=== PATIENT | female | born 1985 | race African-American/Black ===

== ENCOUNTER 2022-02-18 18:53 | Emergency (ER) | payer MEDICAID, SELFPAY ==
--- NOTE | ~2022-02-18 | US_ITS ---
EXAMINATION: US OBSTETRICAL FOLLOW UP CLINICAL INFORMATION: 16 weeks. Abdominal pain. COMPARISON: None TECHNIQUE: Real time transabdominal imaging with color and M-mode Doppler. POSITION: Cephalad PLACENTA: Anterior MEASUREMENTS: biometric measurements are as follows: Biparietal Diameter: 4.04 cm (18 weeks 2 days) Occipital Frontal Diameter: 5.03 cm (18 weeks 1 day) Head Circumference: 14.82 cm (18 weeks 0 days) Abdominal Circumference: 12.47 cm (18 weeks 1 day) Femur Length: To 0.75 cm (18 weeks 3 day) The standard deviation for the above measurements is +/- 1 week 6 days ESTIMATED WEIGHT: The EFW is 224 grams +/- 30 3 g. (0 lbs. 8 oz. +/- 1 ounce) Limited anatomic assessment demonstrates normal kidneys, bladder, stomach, and four-chamber heart view. No appreciable morphologic abnormalities are identified on these images. US/US OB follow up IMPRESSION: 1. Single intrauterine gestation in cephalad position with anterior placenta. Gestational age is 18 weeks 1 day based upon today's measurements with an estimated date of delivery 07/21/2021 based upon today's measurements. 2. EFW: 8 ounces
[2022-02-18 19:09] VITALS: BP 138/80; PULSE 76
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
[2022-02-18 19:33] VITALS: BP 104/60; PULSE 76; RESP 16; TEMP 36.8; O2SAT 100; BMI 17.6
--- NOTE | 2022-02-18 19:53 | PC.NURSE ---
doppler performed, hr was located to the rt abdomen at the rate of 164
[2022-02-18 20:13] LABS: MANUAL DIFF FLAG NO
[2022-02-18 20:15] LABS: Basophils Percent Auto 0.4 % (0-2); Eosinophils Percent Auto 0.4 % (0-4); Hematocrit 33.9 % (37.0-47.0); Hemoglobin 11.6 g/dl (12.0-16.0); Imm Gran Abs Auto 0.07 X10*3/uL (0.00-0.03); Imm Gran Pct Auto 0.8 % (0.0-0.4); Lymphocytes Absolute Auto 2.1 X10*3/uL (1.2-4.9); Lymphocytes Percent Auto 25.3 % (20-40); Mean Corpuscular HGB Conc 34.2 g/dl (31.0-35.0); Mean Corpuscular Hemoglobin 30.9 pg (27.0-33.0); Mean Corpuscular Volume 90.4 fL (80.0-98.0); Mean Platelet Volume 10.9 fL (9.4-12.3); Monocytes Absolute Auto 0.9 X10*3/uL (0.1-1.2); Monocytes Percent Auto 10.6 % (2-11); Neutrophils Absolute Auto 5.2 x10*3/uL (2.0-8.3); Neutrophils Percent Auto 62.5 % (45-73); Platelet Count 216 X10*3/uL (160-400); Red Blood Count 3.75 X10*6/uL (4.20-5.50); Red Cell Distribution Width 12.1 % (11.0-16.0); White Blood Count 8.4 X10*3/uL (4.8-10.8)
[2022-02-18 20:16] LABS: Appearance Urine Clear; Color Urine Yellow; Glucose Urine UA Negative (Negative); Leukocyte Esterase Urine Trace (Negative); Nitrite Urine Negative (Negative); PH 7.5 (5.0-9.0); Specific Gravity - Urine 1.015 (1.005-1.025); UMIC TRIGGER UACC YES; Urine Blood Negative (Negative); Urine Ketones Negative (Negative); Urine Protein Negative (Neg-Trace)
[2022-02-18 20:17] VITALS: BP 94/54; PULSE 77; RESP 20; TEMP 36.6; O2SAT 100
[2022-02-18] MEDS: 0.9 % Sodium Chloride 1,000 ML 999 ML IVCONT (20:19)
--- NOTE | 2022-02-18 20:20 | PC.NURSE ---
Pt had stable V/S upon triage. PT BP is low over 94/61, Pt IV inserted and fluids. Pt speaks little French but RN utilize tablet Switch Identity Governance building contractor to finish assessment. Pt labs were drawn and urine was collected.
[2022-02-18 20:22] LABS: Bacteria Urine Trace (None Seen); Hyaline Casts Urine 0-2 /LPF (0-2); RBC Urine 0-2 /HPF (0-2); WBC Urine 0-5 /HPF (0-5)
[2022-02-18 21:09] VITALS: BP 98/64; PULSE 72; RESP 16; TEMP 36.8; O2SAT 100
[2022-02-18 21:38] LABS: Alanine Aminotransferase 9 U/L (0-31); Albumin Level 3.3 g/dL (3.5-5.0); Alkaline Phosphatase 37 U/L (39-117); Anion Gap 15 (12-20); Aspartate Amino Transferase 18 U/L (5-31); Bilirubin Direct < 0.2 mg/dL (0.0-0.5); Bilirubin Total < 0.2 mg/dL (0.0-1.0); Blood Urea Nitrogen 7 mg/dL (9-16); Calcium 8.3 mg/dL (8.4-10.2); Carbon Dioxide 17 mmol/L (22-29); Chloride 110 mmol/L (96-108); Creatinine Clr Calc Pharmacy 93.9; Estimated Glomerular Filt Rate > 60; Glucose Random 86 mg/dL (60-115); Lipase 73 U/L (8-78); Potassium 4.5 mmol/L (3.3-5.1); Sodium 137 mmol/L (135-145); Total Protein 6.3 g/dL (6.5-8.0)
[2022-02-18 22:15] LABS: HCG Quantitative 73393 mIU/mL
--- NOTE | 2022-02-18 23:30 | PC.NURSE ---
Addendum entered by Becki Enriquez 02/18/22 23:47: Tablet was used for Creole major assembler. Original Note: Pt V/S were stable, Pt had pelvic exam completed and labs were sent. Pt was provided for with brochure for f/u on health insurance, food stamps, and further assistance for immigration status. Pt was educated about to take care her and the importance of OB-HEAD CASHIER care.
[2022-02-19 01:08] LABS: CT PCR NOT DETECTED (Not Detect.); NG PCR NOT DETECTED (Not Detect.)
--- NOTE | 2022-02-19 09:02 | PM.OBCN ---
OB Consult Note - [facility] Data Service Date: 02/18/22 Primary Care Provider: None Physician Narrative Late entry note I was consulted at 22:50 on Jenniefr Hansen who is a 36 year old female at 18 weeks of gestation presenting emergency room draining of lower abdominal pain, intermittent in nature but resolved by the time of arrival to the emergency room, it is not associated vaginal bleeding, vaginal discharge leakage of fluid or cramps .? The patient has not had any care, and arrived in [place] about a month ago from [place].? Workup done emergency room included CBC, chemistry, GC chlamydia and Trichomonas or were negative. UA which showed trace of leukocyte esterase. Ob ultrasound showed an 18 weeks and 2 days of gestation live fetus with no abnormalities OB [facility] Social History Social History Patient Tobacco Use Status: Never used Tobacco Use of substances other than those prescribed or required for medical reasons: No Advance Directives: No Advance Directives Information Provided: No Patient : Yes Meds Allergies Allergy/AdvReac Type Severity Reaction Status Date / Time No Known Allergies Allergy Verified 02/18/22 19:11 OB Flowsheet OB Flowsheet & Tools History 3 Elective abortions Para 2 Spontaneous abortions Hx # Term Pregnancies Ectopic pregnancies Hx # Pregnancies Multiple births OB Physical Exam Physical Exam Additional Comments: Reported by josiah Harrison, nurse practitioner in the emergency room as the following: Abdomen soft benign no tenderness positive bowel sounds Pelvic exam within normal no blood per vagina, closed cervix, no tenderness heart rate in the 156 OB Consult Results Labs CBC & Chem 7: 02/18/22 19:55 02/18/22 21:18 Labs: Short CBC 02/18/22 Range/Units 19:55 WBC 8.4 (4.8-10.8) X10*3/uL Hgb 11.6 L (12.0-16.0) g/dl Hct 33.9 L (37.0-47.0) % Plt Count 216 (160-400) X10*3/uL BMP 02/18/22 21:18 Sodium 137 Potassium 4.5 Chloride 110 H Carbon Dioxide 17 L BUN 7 L Creatinine 0.63 Calcium 8.3 L Liver Function 02/18/22 Range/Units 21:18 Total Bilirubin < 0.2 (0.0-1.0) mg/dL Direct Bilirubin < 0.2 (0.0-0.5) mg/dL AST 18 (5-31) U/L ALT 9 (0-31) U/L Alkaline Phosphatase 37 L (39-117) U/L Albumin 3.3 L (3.5-5.0) g/dL Urine 02/18/22 Range/Units 19:55 Urine Color Yellow Urine Appearance Clear Urine pH 7.5 (5.0-9.0) Ur Specific [place] 1.015 (1.005-1.025) Urine Protein Negative (Neg-Trace) mg/dL Urine Glucose (UA) Negative (Negative) mg/dL OB - CN: A/P Assessment and Plan (1) UTI in : Status: Acute Assessment and Plan: Recommended the following: Macrobid 100 mg p.o. b.i.d. for 5 days, send urine for culture, instructions to be given to patient to come back to emergency room in case of recurrence of the pain, vaginal bleeding, fever above 100.4, flank pain, nausea or vomiting, leakage of fluid and to follow-up in the morning in our office for initial visit appointment, vitamin 1 tablet p.o. q.d. I spent a total of 20 minutes reviewing the chart, communicating to the ER provider and documenting in the medical record
== END 2022-02-18 23:50 | disposition home or self-care (01) ==
PROVIDERS: Nurse Practitioner Family; Emergency Provider Emergency Medicine Emergency Medical Services
DX: O26.892 Other specified pregnancy related conditions, second trimester (principal); R10.30 Lower abdominal pain, unspecified; O23.42 Unspecified infection of urinary tract in pregnancy, second trimester; N39.0 Urinary tract infection, site not specified; O09.522 Supervision of elderly multigravida, second trimester; Z3A.18 18 weeks gestation of pregnancy; Z72.89 Other problems related to lifestyle; Z60.3 Acculturation difficulty
CPT/HCPCS: 36415; 76816; 80048; 80076; 81001; 83690; 84702; 85025; 87491; 87591; 96360; 99284

== ENCOUNTER 2025-04-17 10:43 | Outpatient (REF) | payer MEDICAID, SELFPAY ==
--- NOTE | ~2025-04-17 | XR_ITS ---
EXAMINATION: X-ray bilateral knees CLINICAL INFORMATION: Bilateral knee pain 2 years COMPARISON: None TECHNIQUE: [Left knee 4 views. Right knee 3 views. FINDINGS: Right knee: Anatomic alignment. No significant joint space narrowing. No acute fracture, dislocation or suspicious bony lesion. No significant effusion. No abnormal soft tissue calcification. Left knee: Anatomic alignment. No significant joint space narrowing. No fracture, dislocation or suspicious bony lesion. No significant effusion. No abnormal soft tissue calcification. XR/XR knee LT 4V IMPRESSION: No acute findings Electronically signed by: Tutu Hernandez MD 04/17/2025 01:11 PM [facility]
--- NOTE | ~2025-04-17 | XR_ITS ---
EXAMINATION: XR HIP 2 OR MORE VIEWS LEFT HISTORY: bilateral knee pain x 2y + left hip pain x 4y COMPARISON: There are no prior studies available for comparison. FINDINGS: Two views of the left hip are submitted. Osseous mineralization is normal. There is no fracture or dislocation. The joint space is maintained. The soft tissues are unremarkable. XR/XR hip LT min 2V IMPRESSION: Unremarkable examination of the left hip. Electronically signed by: Nitin Barahona MD 04/17/2025 01:12 PM [facility]
--- NOTE | ~2025-04-17 | XR_ITS ---
EXAMINATION: X-ray bilateral knees CLINICAL INFORMATION: Bilateral knee pain 2 years COMPARISON: None TECHNIQUE: [Left knee 4 views. Right knee 3 views. FINDINGS: Right knee: Anatomic alignment. No significant joint space narrowing. No acute fracture, dislocation or suspicious bony lesion. No significant effusion. No abnormal soft tissue calcification. Left knee: Anatomic alignment. No significant joint space narrowing. No fracture, dislocation or suspicious bony lesion. No significant effusion. No abnormal soft tissue calcification. XR/XR knee RT 3V IMPRESSION: No acute findings Electronically signed by: Tutu Hernandez MD 04/17/2025 01:11 PM [facility]
--- OUTSIDE RECORDS SUMMARY | 2025-04-17 09:15 | XMS_ITS | Encounter Summary ---
Author Organization [employer] Address [address] [place] [address] 7 [place] [address] Care Team Providers Care Incinerator Attendant Name Role Phone Nicole Ramirez MD Primary Care Provider + Reason for Visit * Reason Comments Establish Care Encounter Details Date Type Department Care Team ([facility] st Contact Info) Description 04/17/2025 9:15 AM EST Office Visit [facility] [address], [place] [phone] Nicole Ramirez MD [address] [place], [place] [phone] Housing instability due to housing cost burden (Primary Dx); Nonintractable headache, unspecified chronicity pattern, unspecified headache type; Arthralgia of left knee; Arthralgia of both knees; Chronic left hip pain; Screening examination for STD (sexually transmitted disease) Social History Tobacco Use Types Packs/Day Years Used Date Smoking Tobacco: Never Smokeless Tobacco: Never Tobacco Cessation:Counseling Given: Not Answered Depression Answer Date Recorded Patient Health Questionnaire-9 Score 2 04/17/2025 Patient Health Questionnaire-9 Score 2 04/17/2025 Last PHQ-9: Questionnaire Data Not on file 1 06/17/2024 Housing Stability Answer Date Recorded What is your housing situation today? I have lesa wood 04/17/[address] you li ve. Do you have problems with any of the following? Pests such as bugs, ants, or mice;Mold 04/17/2025 Food Insecurity Answer Date Recorded Within the past 12 months, y ou worried that your food would run out before you got money to buy more: Sometimes True 2024 Within the past 12 months,th e food you bought just didn't last and you didn't have enough money to get more: Never True 04/17/2025 Transportation Answer Date Recorded In the past 12 months, has l ack of transportation kept you from medical appts, meetings, work or from getting things needed for daily living? No 04/17/2025 Utilities Answer Date Recorded In the past 12 months, has t he electric, gas, oil or water company threatened to shut off services in your home? Yes 04/17/2025 Depression Answer Date Recorded Patient Health Questionnaire-2 Score 0 04/17/2025 Internet Access Answer Date Recorded Internet Access Q1 Yes 04/09/2025 Internet Access Q2 Not on file 04/09/2025 Comments No Intention Date Recorded No desire to become (finding) 1 06/17/2024 Sex and Gender Information Value Date Recorded Sex Assigned at Female 01/02/2025 10:37 AM EDT Legal Sex Female 10:34 AM EDT Gender Identity Female 01/02/2025 10:37 AM EDT Sexual Orientation Straight 01/02/2025 10 :37 AM EDT documented as of this encounter Last Filed Vital Signs Vital Sign Reading Time Taken Comments Blood Pressure 128/62 04/17/2025 9:37 AM EST Pulse 84 04/17/2025 9:37 AM EST Temperature 36.2 C (97.2 F) 04/17/2025 9:37 AM EST Respiratory Rate 22 04/17/2025 9:37 AM EST Oxygen Saturation - - Inhaled Oxygen Concentration - - Weight 50.1 kg (110 lb 6.4 oz) 04/17/2025 9:37 A M EST Height - - Body Mass Index - - documented in this encounter Functional Status * Over the past 2 weeks, how often have you been bothered by any of the following problems? Question Answer Date of Assessment Author Patient Health Questionnaire -2 Score 0 04/17/2025 10:32 AM EST Nicolette Vaughan MA * Little interest or pleasure in doing things Answer Date of Assessment Author Not at all 04/17/2025 10:32 AM EST Nicolette Vaughan MA * Feeling down, depressed, or hopeless Answer Date of Assessment Author Not at all 04/17/2025 10:32 AM Nicolette Cornelius MA * Trouble falling or staying asleep, or sleeping too much Answer Date of Assessment Author Several days 04/17/2025 10:32 AM Nicolette Cornelius MA * Feeling tired or having little energy Answer Date of Assessment Author Not at all 04/17/2025 10:32 AM Nicolette Cornelius MA * Poor appetite or overeating Answer Date of Assessment Author Several days 04/17/2025 10:32 AM Nicolette Cornelius MA * Feeling bad about yourself - or that you are a failure or have let yourself or your family down Answer Date of Assessment Author Not at all 04/17/2025 10:32 AM Nicolette Cornelius MA * Trouble concentrating on things, such as reading the newspaper or watching television Answer Date of Assessment Author Not at all 04/17/2025 10:32 AM Nicolette Cornelius MA * Moving or speaking so slowly that other people could have noticed? Or the opposite - being so fidgety or restless that you have been moving around a lot more than usual. Answer Date of Assessment Author Not at all 04/17/2025 10:32 AM Nicolette Cornelius MA * Thoughts that you would be better off or hurting yourself in some way Answer Date of Assessment Author Not at all 04/17/2025 10:32 AM Nicolette Cornelius MA * Patient Health Questionnaire-9 Score Answer Date of Assessment Author 2 04/17/2025 10:32 AM Nicolette Cornelius MA * Over the last 2 weeks, how often have you been bothered by any of the following problems? Question Answer Date of Assessment Author Feeling nervous, anxious, or on edge 0 04/17/2025 10:32 AM Nicolette Cornelius MA Not being able to stop or co ntrol worrying 0 04/17/2025 10:32 AM Nicolette Cornelius MA Worrying too much about diff erent things 0 04/17/2025 10:32 AM Nicolette Cornelius MA Trouble relaxing 0 04/17/2025 10:32 AM Nicolette Cornelius MA Being so restless that it is hard to sit still 0 04/17/2025 10:32 AM Nicolette Cornelius MA Becoming easily annoyed or irritable 0 04/17/2025 10:32 AM CORNELL Vaughan Nicolette ELI Feeling afraid as if somethi ng awful might happen 0 04/17/2025 10:32 AM CORNELL Vaughan NicoletteELI JOSEPHINE-7 Total Score 0 04/17/2025 10:32 AM Nicolette CorneliusELI documented as of this encounter Plan of Treatment Upcoming Encounters Date Type Department Care Team (Late st Contact Info) Description 06/29/2025 9:45 AM EST Office Visit [facility] [address] [place] [address] Nicole Ramirez MD [address] [place], [place] [phone] Scheduled Orders Name Type Priority Associated Diagnoses Orde r Schedule Comprehensive Metabolic Panel Lab Routine Nonintractable headache, unspecified chronicity pattern, unspecified headache type Expected: 04/17/2025 (Approximate), Expires: 04/17/2026 HIV-1/2 Antigen and Antibodies, Fourth Generation, with Reflexes Lab Routine Nonintractable headache, unspecified chronicity pattern, unspecified headache type Screening examination for STD (sexually transmitted disease) Expected: 04/17/2025 (Approximate), Expires: 04/17/2026 Hepatitis Panel, General Lab Routine Screening examination for STD (sexually transmitted disease) Expected: 04/17/2025 (Approximate), Expires: 04/17/2026 Lipid Panel with Reflex to Direct LDL Lab Routine Nonintractable headache, unspecified chronicity pattern, unspecified headache type Expected: 04/17/2025 (Approximate), Expires: 04/17/2026 Syphilis Screen Lab Routine Screening examination for STD (sexually transmitted disease) Expected: 04/17/2025 (Approximate), Expires: 04/17/2026 TSH with Reflex to Free T4 Lab Routine Nonintractable headache, unspecified chronicity pattern, unspecified headache type Expected: 04/17/2025 (Approximate), Expires: 04/17/2026 T-SPOT .TB Lab Routine Nonintractable headache, unspecified chronicity pattern, unspecified headache type Expected: 04/17/2025 (Approximate), Expires: 04/17/2026 documented as of this encounter Procedures Procedure Name Priority Date/Time Associated Diagnosis Comments XR KNEE 3 VIEWS RIGHT Routine 04/17/2025 12:21 PM EST Arthralgia of both knees XR KNEE 4+ VIEWS LEFT Routine 04/17/2025 12:17 PM EST Arthralgia of both knees XR HIP 2 OR 3 VIEWS LEFT Routine 04/17/2025 12:14 PM EST Chronic left hip pain CBC WITH AUTO DIFFERENTIAL Routine 04/17/2025 10:59 AM EST Arthralgia of left knee documented in this encounter Results * XR Knee 3 Views Right (04/17/2025 12:21 PM EST) Anatomical Region Laterality Modality Lower Extremities, Knee Right Radiogra phic Imaging 04/17/2025 12:2 1 PM EST Narrative 04/17/2025 1:14 [place] [address] XRay Report Signed Patient: Jennifer Hansen MR#: [id number] : 1985 Acct:[id number] Age/Sex: 40 / F ADM Date: 04/17/25 Loc: HO.[facility]HCX Attending Dr: Nicole Ramirez MD Ordering Physician: Nicole Ramirez MD Date of Service: 04/17/25 Procedure(s): XR knee RT 3V Accession Number(s): [id number] cc: Nicole Ramirez MD Reason for Exam: bl knee pain x 2y + left hip pain x 4y EXAMINATION: X-ray bilateral knees CLINICAL INFORMATION: Bilateral knee pain 2 years COMPARISON: None TECHNIQUE: [Left knee 4 views. Right knee 3 views. FINDINGS: Right knee: Anatomic alignment. No significant joint space narrowing. No acute fracture, dislocation or suspicious bony lesion. No significant effusion. No abnormal soft tissue calcification. Left knee: Anatomic alignment. No significant joint space narrowing. No fracture, dislocation or suspicious bony lesion. No significant effusion. No abnormal soft tissue calcification. XR/XR knee RT 3V IMPRESSION: No acute findings Electronically signed by: Tutu Hernandez MD 04/17/2025 01:11 PM EST RP Dictated By: Tutu Hernandez MD Signed By: <Electronically signed by Tutu Hernandez MD in OV> 04/17/25 1311 DD/ 1221 TD/TT: 04/17/25 1230 Serology Technician: RAMON Procedure Note Donotuseinterpreter, Image - 04/17/[address] [address] XRay Report Signed Patient: Jennifer HansenMR#: [id number] : 1985Acct:[id number] Age/Sex: 40 / FADM Date: 04/17/25 Loc: HO.HHCX Attending Dr: Nicole Ramirez MD Ordering Physician: Nicole Ramirez MD Date of Service: 04/17/25 Procedure(s): XR knee RT 3V Accession Number(s): [id number] cc: Nicole Ramirez MD Reason for Exam: bl knee pain x 2y + left hip pain x 4y EXAMINATION: X-ray bilateral knees CLINICAL INFORMATION: Bilateral knee pain 2 years COMPARISON: None TECHNIQUE: [Left knee 4 views. Right knee 3 views. FINDINGS: Right knee: Anatomic alignment. No significant joint space narrowing. No acute fracture, dislocation or suspicious bony lesion. No significant effusion. No abnormal soft tissue calcification. Left knee: Anatomic alignment. No significant joint space narrowing. No fracture, dislocation or suspicious bony lesion. No significant effusion. No abnormal soft tissue calcification. XR/XR knee RT 3V IMPRESSION: No acute findings Electronically signed by: Tutu Hernandez MD 04/17/2025 01:11 PM EST RP Dictated By: Tutu Hernandez MD Signed By: <Electronically signed by Tutu Hernandez MD in OV> 04/17/25 1311 DD/ 1221 TD/TT: 04/17/25 1230 Serology Technician: RAMON Nicole Ramirez MD IMG XR PROCEDURES Final Result * XR Knee 4+ Views Left (04/17/2025 12:17 PM EST) Anatomical Region Laterality Modality Lower Extremities, Knee Left Radiogra phic Imaging 04/17/2025 12:1 7 PM EST Narrative 04/17/2025 1:14 PM EST [address] [address] XRay Report Signed Patient: Jennifer Hansen MR#: [id number] : 1985 Acct:[id number] Age/Sex: 40 / F ADM Date: 04/17/25 [facility]: Nicole Ramirez MD Ordering Physician: Nicole Ramirez MD Date of Service: 04/17/25 Procedure(s): XR knee LT 4V Accession Number(s): [id number] cc: Nicole Ramirez MD Reason for Exam: bl knee pain x 2y + left hip pain x 4y EXAMINATION: X-ray bilateral knees CLINICAL INFORMATION: Bilateral knee pain 2 years COMPARISON: None TECHNIQUE: [Left knee 4 views. Right knee 3 views. FINDINGS: Right knee: Anatomic alignment. No significant joint space narrowing. No acute fracture, dislocation or suspicious bony lesion. No significant effusion. No abnormal soft tissue calcification. Left knee: Anatomic alignment. No significant joint space narrowing. No fracture, dislocation or suspicious bony lesion. No significant effusion. No abnormal soft tissue calcification. XR/XR knee LT 4V IMPRESSION: No acute findings Electronically signed by: Tutu Hernandez MD 04/17/2025 01:11 PM EST Dictated By: Tutu Hernandez MD Signed By: <Electronically signed by Tutu Hernandez MD in OV> 04/17/25 1311 DD/ 1217 TD/TT: 04/17/25 1230 Serology Technician: RAMON Procedure Note Donotuseinterpreter, Image - 04/17/[address] XRay Report Signed Patient: Jennifer HansenMR#: [id number] : 1985Acct:[id number] Age/Sex: 40 / FADM Date: 04/17/25 Loc: HO.HHCX Attending Dr: Nicole Ramirez MD Ordering Physician: Nicole Ramirez MD Date of Service: 04/17/25 Procedure(s): XR knee LT 4V Accession Number(s): [id number] cc: Nicole Ramirez MD Reason for Exam: bl knee pain x 2y + left hip pain x 4y EXAMINATION: X-ray bilateral knees CLINICAL INFORMATION: Bilateral knee pain 2 years COMPARISON: None TECHNIQUE: [Left knee 4 views. Right knee 3 views. FINDINGS: Right knee: Anatomic alignment. No significant joint space narrowing. No acute fracture, dislocation or suspicious bony lesion. No significant effusion. No abnormal soft tissue calcification. Left knee: Anatomic alignment. No significant joint space narrowing. No fracture, dislocation or suspicious bony lesion. No significant effusion. No abnormal soft tissue calcification. XR/XR knee LT 4V IMPRESSION: No acute findings Electronically signed by: Tutu Hernanedz MD 04/17/2025 01:11 PM EST Dictated By: Tutu Hernandez MD Signed By: <Electronically signed by Tutu Hernandez MD in OV> 04/17/25 1311 DD/ 1217 TD/TT: 04/17/25 1230 Serology Technician: HB Nicole Ramirez MD IMG XR PROCEDURES Final Result * XR Hip 2 or 3 Views Left (04/17/2025 12:14 PM EST) Anatomical Region Laterality Modality Lower Extremities, Hip Left Radiograp hic Imaging 04/17/2025 12:1 4 PM EST Narrative 04/17/2025 1:15 PM EST [address] [address] XRay Report Signed Patient: Jennifer Hansen MR#: [id number] : 1985 Acct:[id number] Age/Sex: 40 / F ADM Date: 04/17/25 Loc: [facility] Attending Dr: Nicole Ramirez MD Ordering Physician: Nicole Ramirez MD Date of Service: 04/17/25 Procedure(s): XR hip LT min 2V Accession Number(s): [id number] cc: Nicole Ramirez MD Reason for Exam: bl knee pain x 2y + left hip pain x 4y EXAMINATION: XR HIP 2 OR MORE VIEWS LEFT HISTORY: bilateral knee pain x 2y + left hip pain x 4y COMPARISON: There are no prior studies available for comparison. FINDINGS: Two views of the left hip are submitted. Osseous mineralization is normal. There is no fracture or dislocation. The joint space is maintained. The soft tissues are unremarkable. XR/XR hip LT min 2V IMPRESSION: Unremarkable examination of the left hip. Electronically signed by: Nitin Barahona MD 04/17/2025 01:12 PM [facility] Dictated By: Nitin Barahona MD Signed By: <Electronically signed by Nitin Barahona MD in OV> 04/17/25 1312 DD/ 1214 TD/TT: 04/17/25 1230 Serology Technician: Procedure Note Donotuseinterpreter, Image - 04/17/2025 [place] [address] XRay Report Signed Patient: Jennifer Hansen#: [id number] : 1985Acct:[id number] Age/Sex: 40 / FADM Date: 04/17/25 Loc: HO.HHCX Attending Dr: Nicole Ramirez MD Ordering Physician: Nicole Ramirez MD Date of Service: 04/17/25 Procedure(s): XR hip LT min 2V Accession Number(s): [id number] cc: Nicole Ramirez MD Reason for Exam: bl knee pain x 2y + left hip pain x 4y EXAMINATION: XR HIP 2 OR MORE VIEWS LEFT HISTORY: bilateral knee pain x 2y + left hip pain x 4y COMPARISON: There are no prior studies available for comparison. FINDINGS: Two views of the left hip are submitted. Osseous mineralization is normal. There is no fracture or dislocation. The joint space is maintained. The soft tissues are unremarkable. XR/XR hip LT min 2V IMPRESSION: Unremarkable examination of the left hip. Electronically signed by: Nitin Barahona MD 04/17/2025 01:12 PM EST RP Dictated By: Nitin Barahona MD Signed By: <Electronically signed by Nitin Barahona MD in OV> 04/17/25 1312 DD/ 1214 TD/TT: 04/17/25 1230 Serology Technician: Nicole Ramirez MD IMG XR PROCEDURES Final Result * CBC auto differential (04/17/2025 10:59 AM EST) White Blood Count 5.0 4.8 - 10.8 X10*3/uL [facility] Red Blood Count 4.29 4.20 - 5.50 X10*6/uL [facility] Hemoglobin 12.5 12.0 - 16.0 g/dl [facility] Hematocrit 39.0 37.0 - 47.0 % [facility] Mean Corpuscular Volume 90.9 80.0 - 98.0 fL [facility] Mean Corpuscular Hemoglobin 29.1 27.0 - 33.0 pg [facility] Mean Corpuscular HGB Conc 32.1 31.0 - 35.0 g/dl [facility] Red Cell Distribution Width 11.3 11.0 - 16.0 % [facility] Platelet Count 185 160 - 400 X10*3/uL [facility] Mean Platelet Volume 12.1 9.4 - 12.3 fL [facility] Neutrophils Percent Auto 54.4 45 - 73 % [facility] Imm Gran Pct Auto 0.2 0.0 - 0.4 % [facility] Lymphocytes Percent Auto 33.6 20 - 40 % [facility] Monocytes Percent Auto 10.6 2 - 11 % [facility] Eosinophils Percent Auto 0.4 0 - 4 % [facility] Basophils Percent Auto 0.8 0 - 2 % [facility] NRBC Pct Auto 0.0 0.0 - 0.2 /100WBC [facility] Neutrophils Absolute Auto 2.7 2.0 - 8.3 x10*3/uL [facility] Imm Gran Abs Auto 0.01 0.00 - 0.03 X10*3/uL [facility] Lymphocytes Absolute Auto 1.7 1.2 - 4.9 X10*3/uL [facility] Monocytes Absolute Auto 0.5 0.1 - 1.2 X10*3/uL [facility] Eosinophils Absolute Auto 0.0 0.0 - 0.4 X10*3/uL [facility] Basophils Absolute Auto 0.0 0.0 - 0.2 X10*3/uL [facility] NRBC Abs Auto 0.000 0.0 - 0.012 X10*3/uL [facility] Blood Venous blood specimen / Unknown 04/17/2025 10:59 AM EST 04/17/2025 1:11 PM EST us Nicole Ramirez MD LAB BLOOD ORDERABLES Fin al Result Performing Organization Address City/State/[facility] Co de Phone Number [facility] [address] [place] [phone] documented in this encounter Visit Diagnoses Diagnosis Housing instability due to housing cost burden- Primary Nonintractable headache, unspecified chronicity pattern, unspecified headache type Arthralgia of left knee Arthralgia of both knees Chronic left hip pain Screening examination for STD (sexually transmitted disease) documented in this encounter Additional Health Concerns Assessment Noted Time PHQ-9 Depression Total Score: 2 04/17/20 10:32 AM EST documented as of this encounter Care Teams Incinerator Attendant Relationship Specialty Start Date End Date Nicole Ramirez MD [address] [place] [phone] PCP - General Internal Medicine 04/17/25 documented as of this encounter
[2025-04-17 13:19] LABS: MANUAL DIFF FLAG NO
[2025-04-17 13:42] LABS: Hematocrit 39.0 % (37.0-47.0); Hemoglobin 12.5 g/dl (12.0-16.0); Imm Gran Abs Auto 0.01 X10*3/uL (0.00-0.03); Imm Gran Pct Auto 0.2 % (0.0-0.4); Lymphocytes Absolute Auto 1.7 X10*3/uL (1.2-4.9); Mean Corpuscular HGB Conc 32.1 g/dl (31.0-35.0); Mean Corpuscular Hemoglobin 29.1 pg (27.0-33.0); Mean Corpuscular Volume 90.9 fL (80.0-98.0); NRBC Abs Auto 0.000 X10*3/uL (0.0-0.012); NRBC Pct Auto 0.0 /100WBC (0.0-0.2); Platelet Count 185 X10*3/uL (160-400); Red Blood Count 4.29 X10*6/uL (4.20-5.50); White Blood Count 5.0 X10*3/uL (4.8-10.8)
--- OUTSIDE RECORDS SUMMARY | 2025-04-17 13:49 | XMS_ITS | Encounter Summary ---
Author Organization [employer] Address [address] [place] [address] Care Team Providers Care Housing Director Name Role Phone Nicole Ramirez MD Primary Care Provider + Encounter Details Date Type Department Care Team (Latest Contact Info) Description 04/17/2025 Travel Social History Tobacco Use Types Packs/Day Years Used Date Smoking Tobacco: Never Smokeless Tobacco: Never Depression Answer Date Recorded Patient Health Questionnaire-9 [...] Q2 Not on file 04/09/2025 Comments No Sex and Gender Information Value Date Recorded Sex Assigned at Female 01/02/2025 10:37 AM EDT Legal Sex Female 10:34 AM EDT Gender Identity Female 01/02/2025 10:37 AM EDT Sexual Orientation Straight 01/02/2025 10 :37 AM EDT documented as of this encounter Functional Status * Over the past 2 weeks, how often have you been bothered by any of the following problems? Question Answer Date of Assessment Author Patient Health Questionnaire -2 Score 0 04/17/2025 10:32 AM Nicolette Cornelius MA * Little interest or pleasure in doing things Answer Date of Assessment Author Not at all 04/17/2025 10:32 AM Nicolette Cornelius MA * Feeling down, depressed, or hopeless Answer Date of Assessment Author Not at all 04/17/2025 10:32 AM Nicolette Cornelius MA * Trouble falling or staying asleep, or sleeping too much Answer Date of Assessment Author Several days 04/17/2025 10:32 AM Nicolette Cornelius MA * Feeling tired or having little energy Answer Date of Assessment Author Not at all 04/17/2025 10:32 AM Nicolette Corneluis MA * Poor appetite or overeating Answer [...] annoyed or irritable 0 04/17/2025 10:32 AM Nicolette Cornelius MA Feeling afraid as if somethi ng awful might happen 0 04/17/2025 10:32 AM Nicolette Cornelius MA JOSEPHINE-7 Total Score 0 04/17/2025 10:32 AM Nicolette Cornelius MA documented as of this encounter Plan of Treatment Upcoming Encounters Date Type Department Care Team (Late st Contact Info) Description 06/29/2025 9:45 AM EST Office Visit [facility] [address] [place] [address] Nicole Ramirez MD [address] [place] [address] documented as of this encounter Visit Diagnoses Not on filedocumented in this encounter Additional Health Concerns Assessment Noted Time PHQ-9 Depression Total Score: 2 04/17/20 10:32 AM EST documented as of this encounter Care Teams Housing Director Relationship Specialty Start Date End Date Nicole Ramirez MD [address] [place] [address] PCP - General Internal Medicine 04/17/25 documented as of this encounter
--- OUTSIDE RECORDS SUMMARY | 2025-04-17 13:49 | XMS_ITS | Clinical Summary ---
Author Organization [employer] Address [address] [facility] [address] [place] [address] Care Team Providers Care Buttermaker Name Role Phone Nicole Ramirez MD Primary Care Provider + Allergies No known active allergies Medications aspirin-acetami nophen-caffeine (Excedrin Migraine) 250-250-65 MG tablet Take 1 tablet by mouth every 6 (six) hours if needed for headaches for up to 10 days. 30 tablet 5 04/27/20 25 Active meloxicam (Mobic) 15 MG tablet Take 1 tablet (15 mg) by mouth Once per day. 30 tablet 5 04/17/20 26 Active Active Problems Problem Noted Date Diagnosed Date Nonintractable headache 04/17/2025 Housing instability due to housing cost burden 1 06/17/2024 Arthralgia of both knees 04/17/2025 Chronic left hip pain 04/17/2025 Encounters Date Type Department Care Team Description 04/17/2025 9:15 AM EST Office Visit [facility] [address] [place] [phone] Nicole Ramirez MD Housing instability due to housing cost burden (Primary Dx); Nonintractable headache, unspecified chronicity pattern, unspecified headache type; Arthralgia of left knee; Arthralgia of both knees; Chronic left hip pain; Screening examination for STD (sexually transmitted disease) 04/17/2025 Patient Outreach [facility] [address] [place] [phone] Nicole Ramirez MD Care Coordination (CHW outreach for SDOH food & housing search-referral completed ) 04/17/2025 Telephone [facility] [address] [place] [address] Nicole Ramirez MD SDOH Concerns 04/17/2025 Travel 04/16/2025 Telephone [facility] [address] [place] [address] Nicole Ramirez MD CHART PREP 04/09/2025 Patient Outreach [facility] [address] [place], [place] [phone] Nicole Ramirez MD Care Coordination (CHW outreach for SDOH housing search-LVM ) 04/09/2025 Patient Outreach [facility] [address] [place] [address] Nicole Ramirez MD Pre-visit Planning (SDOH screening negative and tobacco screening negative) 02/23/2025 Population Health Risk Score [facility] () [address] [phone] Provider, Population Health Generic 02/14/2025 Telephone [facility] [address] [place] [address] Ronny Boykin MD from Last 3 Months Social History Tobacco Use Types Packs/Day Years [...] Orientation Straight 01/02/2025 10 :37 AM EDT Last Filed Vital Signs Vital Sign Reading [...] - - Body Mass Index - - Plan of Treatment Upcoming Encounters Date Type Department Care Team (Late st Contact Info) Description 06/29/2025 9:45 AM EST Office Visit [facility] [address] [place] [address] Nicole Ramirez MD [address] [place] [address] Health Maintenance Due Date Last Done Comments HIV Screening 1985 Lipid Panel 1985 HPV Vaccines (1 - 3-dose series) 02/28/2000 Hepatitis C Screening 2003 Hepatitis B Vaccines (1 of 3 - 19+ 3-dose series) 02/28/2004 Pap Smear 2006 Cervical Cancer Screening 2015 HPV/Cotest 2015 COVID-19 Vaccine (1 - 2024-2 6 season) 2025 Influenza Vaccine (#1) 2025 Mammogram 2025 Alcohol/Substance Use Screening 04/17/2026 04/17/2025 Depression Screening 04/17/2026 04/17/2025, 04/17/2025 Disability Screening 04/17/2026 04/17/2025 Family Planning (PISQ) 04/17/2026 04/17/2025 SDOH Screening 04/17/2026 04/17/2025 Tobacco Screening 04/17/2026 04/17/2025 DTaP/Tdap/Td Vaccines (2 - T d or Tdap) 04/21/2032 04/21/2022 Zoster Vaccines (1 of 2) 2035 RSV Patients and Patients Aged 60 years or older (1 - 1-dose 75+ series) 02/28/2060 HIB Vaccines Aged Out No longer eligi ble based on patient's age to complete this topic Hepatitis A Vaccines Aged Out No long er eligible based on patient's age to complete this topic IPV Vaccines Aged Out No longer eligi ble based on patient's age to complete this topic Meningococcal B Vaccine Aged Out No l onger eligible based on patient's age to complete this topic Meningococcal Vaccine Aged Out No edis ry eligible based on patient's age to complete this topic Pneumococcal Vaccine: Pediatrics (0 to 5 Years) and At-Risk Patients (6 to 49) Years Aged Out No longer eligible b ased on patient's age to complete this topic RSV under 20 months Aged Out No longe r eligible based on patient's age to complete this topic Rotavirus Vaccines Aged Out No longer eligible based on patient's age to complete this topic Procedures Procedure Name Priority Date/Time Associated Diagnosis [...] 10:59 AM EST Arthralgia of left knee from Last 3 Months Results * XR Knee 3 Views Right (04/17/2025 12:21 PM EST) Anatomical Region Laterality Modality Lower Extremities, Knee Right Radiogra phic Imaging 04/17/2025 12:2 1 PM EST Narrative 04/17/2025 1:14 PM EST [facility] [address] [place] [address] XRay Report Signed Patient: Jennifer Hansen MR#: [id number] : 1985 Acct:[id number] Age/Sex: 40 / F ADM Date: 04/17/25 Loc: HO.HHCX Attending Dr: Nicole Ramirez MD Ordering Physician: Nicole Ramirez MD Date of Service: 04/17/25 Procedure(s): XR knee RT 3V Accession Number(s): [id number] cc: Nicole Ramirez MD Reason for Exam: [...] 04/17/25 1311 DD/ 1221 TD/TT: 04/17/25 1230 Warehouse Selector: Procedure Note Donotuseinterpreter, Image - 04/17/[address] [address] XRay Report Signed Patient: Jennifer HansenMR#: [id number] : 1985Acct:[id number] Age/Sex: 40 / FADM Date: 04/17/25 Loc: HO.HHCX Attending Dr: Nicole Ramirez MD Ordering Physician: Nicole Ramirez MD Date of Service: 04/17/25 Procedure(s): XR knee RT 3V Accession Number(s): [id number] cc: Nicole Ramirez MD Reason for Exam: [...] 04/17/25 1311 DD/ 1221 TD/TT: 04/17/25 1230 Warehouse Selector: RAMON us Nicole Ramirez MD IMG XR PROCEDURES Final Result * XR Knee 4+ Views Left (04/17/2025 12:17 PM EST) Anatomical Region Laterality Modality Lower Extremities, Knee Left Radiogra phic Imaging 04/17/2025 12:1 7 PM EST Narrative 04/17/2025 1:14 PM EST [address] [address] XRay Report Signed Patient: Jennifer Hansen MR#: [id number] : 1985 Acct:[id number] Age/Sex: 40 / F ADM Date: 04/17/25 [facility]: Nicole Ramirez MD Ordering Physician: Nicole Ramirez MD Date of Service: 04/17/25 Procedure(s): XR knee LT 4V Accession Number(s): [id number] cc: Nicole Ramirez MD Reason for Exam: [...] by: Tutu Hernandez MD 04/17/2025 01:11 PM [facility] Dictated By: Tutu Hernandez MD Signed By: <Electronically signed by Tutu Hernandez MD in OV> 04/17/25 1311 DD/ 1217 TD/TT: 04/17/25 1230 Warehouse Selector: Procedure Note Donotuseinterpreter, Image - 04/17/[address] [address] XRay Report Signed Patient: Jennifer HansenMR#: [id number] : 1985Acct:[id number] Age/Sex: 40 / FADM Date: 04/17/25 Loc: [facility] Attending Dr: Nicole Ramirez MD Ordering Physician: Nicole Ramirez MD Date of Service: 04/17/25 Procedure(s): XR knee LT 4V Accession Number(s): [id number] cc: Nicole Ramirez MD Reason for Exam: [...] 04/17/25 1311 DD/ 1217 TD/TT: 04/17/25 1230 Warehouse Selector: RAMON us Nicole Ramirez MD IMG XR PROCEDURES Final Result * XR Hip 2 or 3 Views Left (04/17/2025 12:14 PM EST) Anatomical Region Laterality Modality Lower Extremities, Hip Left Radiograp hic Imaging 04/17/2025 12:1 4 PM EST Narrative 04/17/2025 1:15 [place] [address] XRay Report Signed Patient: Jennifer Hansen MR#: [id number] : 1985 Acct:[id number] Age/Sex: 40 / F ADM Date: 04/17/25 Loc: HO.HHCX Attending Dr: Nicole Ramirez MD Ordering Physician: Nicole Ramirez MD Date of Service: 04/17/25 Procedure(s): XR hip LT min 2V Accession Number(s): [id number] cc: Nicole Ramirez MD Reason for Exam: [...] 04/17/25 1312 DD/ 1214 TD/TT: 04/17/25 1230 Warehouse Selector: Procedure Note Donotuseinterpreter, Image - 04/17/2025 [place] [address] XRay Report Signed Patient: Jennifer Hansen#: [id number] : 1985Acct:[id number] Age/Sex: 40 / FADM Date: 04/17/25 Loc: HO.HHCX Attending Dr: Nicole Ramirez MD Ordering Physician: Nicole Ramirez MD Date of Service: 04/17/25 Procedure(s): XR hip LT min 2V Accession Number(s): [id number] cc: Nicole Ramirez MD Reason for Exam: [...] 04/17/25 1312 DD/ 1214 TD/TT: 04/17/25 1230 Warehouse Selector: us Nicole Ramirez MD IMG XR PROCEDURES Final Result * CBC auto differential (04/17/2025 10:59 AM EST) White Blood Count 5.0 4.8 - 10.8 X10*3/uL [facility] Red Blood Count 4.29 4.20 - 5.50 X10*6/uL [facility] Hemoglobin 12.5 12.0 - 16.0 g/dl [facility] Hematocrit 39.0 37.0 - 47.0 % [facility] Mean Corpuscular Volume 90.9 80.0 - 98.0 fL [facility] Mean Corpuscular Hemoglobin 29.1 27.0 - 33.0 pg [facility] Mean Corpuscular HGB Conc 32.1 31.0 - 35.0 g/dl [facility] Red Cell Distribution Width 11.3 11.0 - 16.0 % [facility] Platelet Count 185 160 - 400 X10*3/uL [facility] Mean Platelet Volume 12.1 9.4 - 12.3 fL [facility] Neutrophils Percent Auto 54.4 45 - 73 % [facility] Imm Gran Pct Auto 0.2 0.0 - 0.4 % [facility] Lymphocytes Percent Auto 33.6 20 - 40 % [facility] Monocytes Percent Auto 10.6 2 - 11 % [facility] Eosinophils Percent Auto 0.4 0 - 4 % [facility] Basophils Percent Auto 0.8 0 - 2 % [facility] NRBC Pct Auto 0.0 0.0 - 0.2 /100WBC [facility] Neutrophils Absolute Auto 2.7 2.0 - 8.3 x10*3/uL [facility] Imm Gran Abs Auto 0.01 0.00 - 0.03 X10*3/uL [facility] Lymphocytes Absolute Auto 1.7 1.2 - 4.9 X10*3/uL [facility] Monocytes Absolute Auto 0.5 0.1 - 1.2 X10*3/uL [facility] Eosinophils Absolute Auto 0.0 0.0 - 0.4 X10*3/uL [facility] Basophils Absolute Auto 0.0 0.0 - 0.2 X10*3/uL [facility] NRBC Abs Auto 0.000 0.0 - 0.012 X10*3/uL [facility] Blood Venous blood specimen / Unknown 04/17/2025 10:59 AM EST 04/17/2025 1:11 PM EST us Nicole Ramirez MD LAB BLOOD ORDERABLES Fin al Result [facility] [address] [place] [address] [phone] from Last 3 Months Insurance [facility] C3 Care Teams Buttermaker Relationship Specialty Start Date End Date Nicole Ramirez MD [address] [place] [phone] PCP - General Internal Medicine 04/17/25
--- OUTSIDE RECORDS SUMMARY | 2025-04-17 13:49 | XMS_ITS | Encounter Summary ---
Author Organization [employer] Address [address] [facility] [address] [place] [address] Care Team Providers Care Clipper Automatic Name Role Phone Nicole Ramirez MD Primary Care Provider + Reason for Visit * Reason Comments Care Coordination CHW outreach for SDO H food & housing search-referral completed Encounter Details Date Type Department Care Team (Latest Contact Info) Description 04/17/2025 Patient Outreach [facility] [address] [place], [place] [phone] Nicole Ramirez MD [address] [place] [phone] Care Coordination (CHW outreach for SDOH food & housing search-referral completed ) Social History Tobacco Use Types Packs/Day Years [...] Author Several days 04/17/2025 10:32 AM Nicolette Corenlius MA * Feeling bad about yourself - [...] Cornelius MA documented as of this encounter Progress Notes * Gregg Araya - 04/17/2025 11:27 AM EST CHW Gregg Araya, placed outbound call to patient for assistance with SDOH as a referral was received by the provider. Patient's name and were confirmed. Patient screened positive for the following SDOH housing insecurities. Patient states is staying with her friend but is searching for her own apartment. CHW referral patient to the list of application mail out to her address on file. Patient verbalizes understanding, and able to agree with plan to follow up herself. Patient educated on extended clinic hours on Mondays through Wednesdays, and Walk-In Urgent Care Located in [facility]. Patient provided with after-hours line for [facility], , which offer night time triage service and option to transfer to teacher education director provider if needed. documented in this encounter Plan of Treatment Upcoming Encounters Date Type Department Care Team (Late st Contact Info) Description 06/29/2025 9:45 AM EST Office Visit [facility] [address] [place] [phone] Nicole Ramirez MD [address] [place] [phone] documented as of this encounter Visit Diagnoses Not on filedocumented in this encounter Additional Health Concerns Assessment Noted Time PHQ-9 Depression Total Score: 2 04/17/20 10:32 AM EST documented as of this encounter Care Teams Clipper Automatic Relationship Specialty Start Date End Date Nicole Ramirez MD [address] [place] [phone] PCP - General Internal Medicine 04/17/25 documented as of this encounter
--- OUTSIDE RECORDS SUMMARY | 2025-04-17 13:49 | XMS_ITS | Encounter Summary ---
Author Organization [employer] Address [address] [facility] [address] [place] [address] Care Team Providers Care License Clerk Name Role Phone Nicole Ramirez MD Primary Care Provider + Reason for Visit * Reason Onset Date Comments SDOH Concerns 04/17/2025 Encounter Details Date Type Department Care Team ([facility] st Contact Info) Description 04/17/2025 Telephone [facility] [address] [place], [place] [phone] Nicole Ramirez MD [address] [place], [place] [phone] SDOH Concerns Social History Tobacco Use Types Packs/Day Years [...] Cornelius MA documented as of this encounter Miscellaneous Notes * Telephone Encounter - Nicolette Vaughan MA - 04/17/2025 10:34 AM EST Pt has a positive SDOH. Please reach out. Thank you documented in this encounter Plan of Treatment Upcoming Encounters Date Type Department Care Team (Late st Contact Info) Description 06/29/2025 9:45 AM EST Office Visit [facility] [address] [place] [address] Nicole Ramirez MD [address] [place], [place] [phone] documented as of this encounter Visit Diagnoses Not on filedocumented in this encounter Additional Health Concerns Assessment Noted Time PHQ-9 Depression Total Score: 2 04/17/20 10:32 AM EST documented as of this encounter Care Teams License Clerk Relationship Specialty Start Date End Date Nicole Ramirez MD [address] [place] [address] PCP - General Internal Medicine 04/17/25 documented as of this encounter
--- OUTSIDE RECORDS SUMMARY | 2025-04-17 13:49 | XMS_ITS | Encounter Summary ---
Author Organization [employer] Address [address] [place] [address] [address] [place] [address] Care Team Providers Care Acid Mixer Name Role Phone Unavailable Primary Care Provider Unavailabl e Reason for Visit * Reason Onset Date Comments CHART PREP 04/16/2025 Encounter Details Date Type Department Care Team ([facility] st Contact Info) Description 04/16/2025 Telephone [facility] [address] [place] [address] Nicole Ramirez MD [address] [place] [address] CHART PREP Social History Tobacco Use Types Packs/Day Years Used Date Smoking Tobacco: Never Assessed Depression Answer Date Recorded Patient Health Questionnaire-9 [...] Access Q2 Not on file 04/09/2025 Comments Unknown Sex and Gender Information Value Date Recorded Sex Assigned at Female 01/02/2025 10:37 AM EDT Legal Sex Female 10:34 AM EDT Gender Identity Female 01/02/2025 10:37 AM EDT Sexual Orientation Straight 01/02/2025 10 :37 AM EDT documented as of this encounter Miscellaneous Notes * Telephone Encounter - Nicolette Vaughan MA - 04/16/2025 1:48 PM EST Chart Prep Labs: not applicable Images: not applicable Referrals: not applicable Vaccines due: Covid, Flu, Hep B, and HPV Screenings: mammogram, pap smear, LMP, and PISQ Overdue care gaps: SBIRT, PHQ-9, Disability screen, and Tobacco, GAD7 documented in this encounter Plan of Treatment Upcoming Encounters Date Type Department Care Team (Late st Contact Info) Description 06/29/2025 9:45 AM EST Office Visit [facility] [address] [place] [address] Nicole Ramirez MD [address] [place] [address] documented as of this encounter Visit Diagnoses Not on filedocumented in this encounter
[2025-04-17 14:19] LABS: Alanine Aminotransferase 11 U/L (0-31); Albumin Level 4.4 g/dL (3.5-5.0); Alkaline Phosphatase 38 U/L (39-117); Anion Gap 9 (12-20); Aspartate Amino Transferase 23 U/L (5-31); Blood Urea Nitrogen 7 mg/dL (9-16); Calcium 8.8 mg/dL (8.4-10.2); Carbon Dioxide 24 mmol/L (22-29); Chloride 110 mmol/L (96-108); Cholesterol 138 mg/dL (<200); Estimated Glomerular Filt Rate > 60; HDL Cholesterol 59 mg/dL (>40); Potassium 4.0 mmol/L (3.3-5.1); Sodium 139 mmol/L (135-145); Total Protein 7.4 g/dL (6.5-8.0); Triglycerides 61 mg/dL (<150)
[2025-04-17 15:46] LABS: Reflex LDLD? No
[2025-04-18 05:32] LABS: Syphilis Screen Nonreactive (Nonreactive)
[2025-04-18 05:54] LABS: HBS Num1 48.98 mIU/mL (0-7.99); HBc Num1 1.38 S/CO (0.00-0.79); HBsAGNum1 0.47 S/CO (0.00-0.99); HIV Num 1 0.09 S/CO (0.00-0.99); Hepatitis A Antibody IgM 0.30 Index (0-0.79); Hepatitis B Surface Antigen Negative (Negative); ~HepC Num1 0.13 S/CO (0.00-0.79); ~Hepatitis A Antibody IgM Nonreactive (Nonreactive); ~Hepatitis B Surface Antibody REACTIVE (Nonreactive); ~Hepatitis C Antibody Nonreactive (Nonreactive)
[2025-04-18 08:33] LABS: HBc Num2 1.44 S/CO; HBc Num3 1.48 S/CO
[2025-04-20 11:58] LABS: TS Negative Control Passed; TS Panel A 2; TS Panel B 4; TS Positive Control Passed; TSpotTB Negative (Negative)
== END 2025-04-17 10:44 | disposition home or self-care (01) ==
LOC: HO.HHCX 10:43
PROVIDERS: PCP Internal Medicine; Visit Provider Internal Medicine
DX: Z11.3 Encounter for screening for infections with a predominantly sexual mode of transmission (principal); G89.29 Other chronic pain; M25.562 Pain in left knee; M25.561 Pain in right knee; M25.552 Pain in left hip; Z11.1 Encounter for screening for respiratory tuberculosis; Z11.4 Encounter for screening for human immunodeficiency virus [HIV]; Z11.59 Encounter for screening for other viral diseases; R51.9 Headache, unspecified
CPT/HCPCS: 36415; 73502; 73562; 73564; 80053; 80061; 84443; 85025; 86481; 86704; 86706; 86709; 86780; 86803; 87340; 87389

== ENCOUNTER → 2025-04-17 11:49 | Outpatient (BNV) | payer MEDICAID, SELFPAY | PROVIDERS: PCP Internal Medicine; Visit Provider Radiology Diagnostic Ultrasound | DX: M25.561 Pain in right knee (principal); M25.562 Pain in left knee; M25.552 Pain in left hip | CPT/HCPCS: 73502; 73562; 73564 ==